=== PATIENT | female | born 1970 | race Caucasian/White ===

== ENCOUNTER → 2016-08-14 | Outpatient (CLI) | payer BC | END | disposition home or self-care (01) | LOC: CFH 10:09 | PROVIDERS: ATTEND Specialist | DX: L40.51 Distal interphalangeal psoriatic arthropathy (principal); Z92.25 Personal history of immunosuppression therapy; Z13.820 Encounter for screening for osteoporosis | CPT/HCPCS: 77080 ==

== ENCOUNTER → 2020-06-04 | Outpatient (CLI) | payer MEDICAID | END | disposition home or self-care (01) | LOC: RAD 21:38 | PROVIDERS: ATTEND Internal Medicine | DX: M19.072 Primary osteoarthritis, left ankle and foot (principal); M19.071 Primary osteoarthritis, right ankle and foot; M19.042 Primary osteoarthritis, left hand; M19.041 Primary osteoarthritis, right hand; M25.774 Osteophyte, right foot; M21.071 Valgus deformity, not elsewhere classified, right ankle ==